=== PATIENT | male | born 1995 | race Caucasian/White ===

== ENCOUNTER 2020-04-28 21:19 | Emergency (ER) | payer MEDICAID, SELFPAY ==
[~2020-04-28] VITALS: Ht 180.3 cm; Wt 118.4 kg
[2020-04-28 22:04] VITALS: Ht 180.3 cm; Wt 118.4 kg
[2020-04-28 23:55] VITALS: BP 141/86
== END 2020-04-29 00:02 | disposition home or self-care (01) ==
LOC: ED 21:19
DX: R50.9 Fever, unspecified (principal)
CPT/HCPCS: U0003-CS